=== PATIENT | male | born 1965 | race Caucasian/White ===

== ENCOUNTER 2021-11-01 16:54 | Emergency (ER) | payer OTHER ==
[~2021-11-01] VITALS: Ht 188 cm; Wt 127.0 kg
[2021-11-01] MEDS ORDERED: ATOR40TA PO (17:59)
[2021-11-01] MEDS ORDERED: FENO160 PO (17:59)
[2021-11-01] MEDS ORDERED: METF500 PO (18:00)
[2021-11-01] MEDS ORDERED: ASPI81CH PO (18:00)
[2021-11-01] MEDS ORDERED: VALS80 PO (18:00)
[2021-11-01] MEDS ORDERED: OMEPRAZOLE MAGN20 MG PO (18:00)
[2021-11-01 18:43] LABS: BASOPHILS ABSOLUTE AUTO 0.07 K/mm3 (0.00-0.23); BASOPHILS PERCENT AUTO 1 % (0-2); EOSINOPHILS ABSOLUTE AUTO 0.09 K/mm3 (0.00-0.68); EOSINOPHILS PERCENT AUTO 1 % (0-6); Hemoglobin 14.8 g/dL (13.5-17.5); IMMATURE GRAN ABSOLUTE AUTO 0.07 K/mm3 (0.00-0.10); IMMATURE GRAN PERCENT AUTO 1 % (0-1); LYMPHOCYTES ABSOLUTE AUTO 2.09 K/mm3 (0.84-5.20); LYMPHOCYTES PERCENT AUTO 23 % (21-46); MONOCYTES ABSOLUTE AUTO 0.74 K/mm3 (0.16-1.47); MONOCYTES PERCENT AUTO 8 % (4-13); Mean Corpuscular HGB Conc 34.4 g/dL (31.5-36.5); Mean Corpuscular Volume 93 fL (80-100); Mean Platelet Volume 9.5 fL (9.1-12.4); NEUTROPHILS ABSOLUTE AUTO 6.16 K/mm3 (1.96-9.15); NEUTROPHILS PERCENT AUTO 67 % (41-73); Platelet Count 270 K/mm3 (150-400); RDW Coefficient Variation 13.1 % (11.7-14.2); RDW Standard Deviation 44.5 fL (35.1-46.3); Red Blood Cell Count 4.63 M/mm3 (4.30-5.90); White Blood Cell Count 9.22 K/mm3 (4.00-11.30)
[2021-11-01 19:08] LABS: Anion Gap 10 mmol/L (6-16); Blood Urea Nitrogen 13 mg/dL (8-24); Bun/Creatinine Ratio 16.9 (12.0-20.0); CO2, Blood 23 mmol/L (21-32); Calcium, Blood 8.7 mg/dL (8.5-10.1); Chloride, Blood 105 mmol/L (98-108); Creatinine, Blood 0.77 mg/dL (0.60-1.20); Glomerular Filtration Rate >60 (60-); Glucose, Blood 171 mg/dL (70-99); Potassium, Blood 4.2 mmol/L (3.5-5.5); Sodium, Blood 138 mmol/L (136-145)
== END 2021-11-01 21:53 | disposition home or self-care (01) ==
LOC: ER 16:54
PROVIDERS: Student in an Organized Health Care Education/Training Program
DX: S06.9X9A Unspecified intracranial injury with loss of consciousness of unspecified duration, initial encounter (principal); S01.81XA Laceration without foreign body of other part of head, initial encounter; V89.2XXA Person injured in unspecified motor-vehicle accident, traffic, initial encounter
CPT/HCPCS: 12002; 70450; 71046; 80048; 85025; 90714; 93005; 93010; 96372; 96374; 99284-25; J1885

== ENCOUNTER → 2022-06-14 | Outpatient (CLI) | payer OTHER ==
[~2022-06-14] MED LIST: ASPI81CH PO; ATOR40TA PO; FENO160 PO; METF500 PO; OMEPRAZOLE MAGN20 MG PO; VALS80 PO
[2022-06-14 19:27] LABS: Microalb/Creat Ratio UR, Rand 13.791 mg/g (0.000-30.000); Microalbumin, Random Urine 25.1 mg/L (0.000-20.000)
== END | disposition home or self-care (01) ==
LOC: LAB 13:41 → LAB SHORT 13:41
PROVIDERS: Family Medicine
DX: E11.9 Type 2 diabetes mellitus without complications (principal)
CPT/HCPCS: 82043; 82570

== ENCOUNTER 2023-07-19 08:56 | Day surgery (SDC) | payer OTHER ==
[~2023-07-19] VITALS: Ht 188 cm; Wt 129.5 kg
[~2023-07-19 08:56] MED LIST changes: +ALBU90OI INH; +LOSA25 PO
[2023-07-19 09:27] VITALS: BP 153/96
--- NOTE | 2023-07-19 09:39 | NUR ---
Ambulatory in Day Surgery History, Chart, Medications and Allergies reviewed before start of procedure. Pre-Op teaching done. Pt verbalizes understanding. Patient States Post-Procedure ride home has been arranged.
--- NOTE | 2023-07-19 10:40 | NUR ---
07/19/23 1040 Gu[address] WITH DR. BYRD, SEE ANESTHESIA RECORDS.
[2023-07-19 10:56] VITALS: BP 145/94
--- NOTE | 2023-07-19 10:58 | NUR ---
REPORT RECEIVED FROM RAVEN PONCE. VSS. PT ABLE TO REPOSITION SELF IN BED. PT DENIES PAIN, NAUSEA OR OTHER DISCOMFORTS. AT BEDSIDE.
[2023-07-19 11:08] VITALS: BP 147/98
--- NOTE | 2023-07-19 11:18 | NUR ---
Patient up to Ambulate independently. Gait steady. VSS AND CONSISTENT WITH PT BASELINE. PT DENIES PAIN, NAUSEA OR OTHER COMPLAINTS. PT VERBALIZES READINESS TO GO HOME. Discharge instructions reviewed with patient. Patient verbalizes understanding. Copy given to patient to take home. Patient States Post-Procedure ride home has been arranged. Discharged via wheelchair to private car for ride home. PT BELONGINGS RETURNED TO PT.
== END 2023-07-19 11:21 | disposition home or self-care (01) ==
LOC: ORSCMMR 08:56 → ORD 10:30 → ORSCMMR 10:30
PROVIDERS: Internal Medicine Gastroenterology
PROC: 0DBN8ZX Excision of Sigmoid Colon, Via Natural or Artificial Opening Endoscopic, Diagnostic (ICD-10-PCS; principal; 2023-07-19 10:30)
DX: Z12.11 Encounter for screening for malignant neoplasm of colon (principal); Z86.010 Personal history of colon polyps; D12.5 Benign neoplasm of sigmoid colon; K57.30 Diverticulosis of large intestine without perforation or abscess without bleeding; E11.9 Type 2 diabetes mellitus without complications; K21.9 Gastro-esophageal reflux disease without esophagitis; E78.00 Pure hypercholesterolemia, unspecified; G47.30 Sleep apnea, unspecified; Z79.84 Long term (current) use of oral hypoglycemic drugs; Z87.891 Personal history of nicotine dependence; Z68.37 Body mass index [BMI] 37.0-37.9, adult; Z79.82 Long term (current) use of aspirin; Z79.899 Other long term (current) drug therapy
CPT/HCPCS: 82947; 88305; J2704; J7120